=== PATIENT | female | born 1940 ===

== ENCOUNTER 2021-12-26 06:45 | Day surgery (SDC) | payer OTHER ==
[~2021-12-26] VITALS: Ht 162.6 cm; Wt 63.5 kg
[~2021-12-26 06:45] MED LIST: MULTIPLE VITAM1 EAC2 PO; NORVASC5 MG PO
== END 2021-12-26 16:10 | disposition home or self-care (01) ==
LOC: CIR.AMB 06:45
PROVIDERS: ATTEND Obstetrics & Gynecology
DX: N84.0 Polyp of corpus uteri (principal); Z88.0 Allergy status to penicillin; Z88.6 Allergy status to analgesic agent; Z86.16 Personal history of COVID-19; G47.33 Obstructive sleep apnea (adult) (pediatric); Z99.89 Dependence on other enabling machines and devices

== ENCOUNTER 2022-05-07 09:00 | Day surgery (SDC) | payer OTHER | END 2022-05-07 13:55 | disposition home or self-care (01) | LOC: AMB-ENDOS 09:00 → CIR.AMB 09:00 → AMB-ENDOS 13:55 | PROVIDERS: ATTEND Colon & Rectal Surgery | DX: D12.5 Benign neoplasm of sigmoid colon (principal); K57.90 Diverticulosis of intestine, part unspecified, without perforation or abscess without bleeding; K64.8 Other hemorrhoids; K59.00 Constipation, unspecified; R10.32 Left lower quadrant pain; I10 Essential (primary) hypertension; Z88.0 Allergy status to penicillin; Z88.8 Allergy status to other drugs, medicaments and biological substances ==

== ENCOUNTER → 2023-01-18 | Emergency (ER) | payer OTHER ==
[~2023-01-18] VITALS: Ht 162.6 cm; Wt 56.7 kg
[~2023-01-18] MED LIST changes: +DICY20TA PO; +INTESTINEX680 M1 PO; +PEPCID AC20 MG PO
== END | disposition home or self-care (01) ==
LOC: ER 11:45
DX: R10.32 Left lower quadrant pain (principal); Z88.0 Allergy status to penicillin; Z88.8 Allergy status to other drugs, medicaments and biological substances; E78.00 Pure hypercholesterolemia, unspecified; I10 Essential (primary) hypertension